=== PATIENT | male | born 1985 | race Caucasian/White ===

== ENCOUNTER 2024-06-11 02:40 | Emergency (ER) | payer SELFPAY ==
[~2024-06-11] VITALS: Ht 185.4 cm; Wt 113.4 kg
[2024-06-11 02:44] VITALS: BP 112/88; PULSE 92; RESP 22; TEMP 98; O2SAT 98
[2024-06-11 03:06] VITALS: BP 112/88; PULSE 92; RESP 22; TEMP 98; O2SAT 98
[2024-06-11] MEDS ORDERED: LIDOCAINE/EPI MPF 2%1:200000 10 ML VIAL INJ ONE (04:55)
[2024-06-11] MEDS ORDERED: LIDOCAINE/EPI 1% 1:100000 20 ML VIAL INJ ONE (04:57)
[2024-06-11] MEDS: LIDOCAINE/EPI 1% 1:100000 20 ML VIAL INJ ONE (05:03)
[2024-06-11] MEDS ORDERED: BACITRACIN OINT 500 UNITS/GM PKT TP ONE ×2 (05:27→05:30)
[2024-06-11] MEDS: BACITRACIN OINT 500 UNITS/GM PKT TP ONE (05:34)
== END 2024-06-11 05:38 | disposition home or self-care (01) ==
LOC: MED 02:40
DX: S01.01XA Laceration without foreign body of scalp, initial encounter (principal); V49.9XXA Car occupant (driver) (passenger) injured in unspecified traffic accident, initial encounter; Y93.89 Activity, other specified; Y92.89 Other specified places as the place of occurrence of the external cause; Y99.8 Other external cause status
CPT/HCPCS: 12002; 99283; J2001